=== PATIENT | female | born 1990 | race Two or more races ===

== ENCOUNTER 2022-03-27 12:51 | Inpatient (IN) | payer BC ==
[2022-03-27 14:19] VITALS: BMI 24.3
[2022-03-27] MEDS ORDERED: DICYCLOMINE HCL 10 MG CAPSULE PO PRN (16:50)
[2022-03-27] MEDS ORDERED: MAGNESIUM CITRATE 300 ML BOTTLE PO PRN (16:50)
[2022-03-27] MEDS ORDERED: LOPERAMIDE HCL 2 MG CAPSULE PO PRN (16:50)
[2022-03-27] MEDS ORDERED: BENZOCAINE/MENTHOL (CHLORASEPTIC ) LOZENGE MM PRN (16:50)
[2022-03-27] MEDS ORDERED: NICOTINE POLACRILEX 2 MG GUM BUC PRN (16:50)
[2022-03-27] MEDS ORDERED: MAGNESIUM HYDROX 2400MG/30ML ORAL SUSPENSION 30 ML CUP PO PRN (16:50)
[2022-03-27] MEDS ORDERED: ONDANSETRON *ODT* 4 MG TABLET SL PRN (16:50)
[2022-03-27] MEDS ORDERED: BISMUTH SUBSALICYLATE 524 MG/30 ML PO PRN (16:50)
[2022-03-27] MEDS ORDERED: NALOXONE HCL (KLOXXADO) 8 MG SPRAY NS PRN (16:50)
[2022-03-27] MEDS ORDERED: chlordiazePOXIDE HCL 25 MG CAPSULE PO PRN (16:50)
[2022-03-27] MEDS ORDERED: ACETAMINOPHEN 325 MG TABLET (FP) PO PRN ×2 (16:50)
[2022-03-27] MEDS ORDERED: OMEPRAZOLE MAGNESIUM PO PRN (17:23)
[2022-03-27] MEDS: chlordiazePOXIDE HCL 25 MG CAPSULE PO SCH ×2 (18:27→22:28)
[2022-03-27] MEDS: METHOCARBAMOL 500 MG TABLET PO PRN (18:30)
[2022-03-27] MEDS: hydrOXYzine PAMOATE 25 MG CAPSULE (FP) PO SCH ×2 (18:30→22:28)
[2022-03-27] MEDS: MELATONIN 5 MG TABLETS PO SCH (22:28)
[2022-03-27] MEDS: hydrALAZINE HCL 50 MG TABLET (FP) PO SCH (22:28)
[2022-03-27] MEDS ORDERED: QUEtiapine FUMARATE 200 MG TABLET PO ONE (22:30)
[2022-03-27] MEDS: THIAMINE HCL 100 MG TABLET (FP) PO SCH (22:32)
[2022-03-28] MEDS: chlordiazePOXIDE HCL 25 MG CAPSULE PO SCH ×4 (06:14→23:33)
[2022-03-28] MEDS: hydrALAZINE HCL 50 MG TABLET (FP) PO SCH ×3 (06:14→23:33)
[2022-03-28] MEDS: hydrOXYzine PAMOATE 25 MG CAPSULE (FP) PO SCH ×5 (06:14→23:33)
[2022-03-28 11:26] LABS: HEMATOCRIT 39.3 % (32.4-45.2); HEMOGLOBIN 12.2 GM/dL (10.7-15.3); MCH 24.6 pg (25.7-33.7); MCHC 31.1 g/dl (32.0-36.0); MEAN PLT VOLUME 8.6 fl (7.5-11.1); PLATELET COUNT 362 10^3/uL (134-434); RBC 4.97 M/mm3 (3.60-5.2); RDW 17.5 % (11.6-15.6); WHITE BLOOD COUNT 6.6 K/mm3 (4.0-10.0)
[2022-03-28] MEDS: amLODIPine BESYLATE 2.5 MG TABLET (FP) PO SCH (11:52)
[2022-03-28] MEDS: PRENATAL VITAMINS W/ FOLIC ACID TABLET (FP) PO SCH (11:52)
[2022-03-28 12:38] LABS: BLOOD UREA NITROGEN 15.9 mg/dL (7-18); CALCIUM 11.1 mg/dL (8.5-10.1)
[2022-03-28 12:39] LABS: ALBUMIN 3.6 g/dl (3.4-5.0)
[2022-03-28 12:42] LABS: BILIRUBIN,TOTAL 0.3 mg/dL (0.2-1); TOT PROT 7.5 g/dl (6.4-8.2)
[2022-03-28 12:55] LABS: HIV INTERPRETATION NEGATIVE (NEGATIVE)
[2022-03-28] MEDS: METHOCARBAMOL 500 MG TABLET PO PRN (18:01)
[2022-03-28] MEDS: THIAMINE HCL 100 MG TABLET (FP) PO SCH (23:33)
[2022-03-28] MEDS: MELATONIN 5 MG TABLETS PO SCH (23:33)
[2022-03-29] MEDS: chlordiazePOXIDE HCL 25 MG CAPSULE PO SCH ×4 (05:55→22:41)
[2022-03-29] MEDS: hydrALAZINE HCL 50 MG TABLET (FP) PO SCH ×3 (06:52→22:41)
[2022-03-29] MEDS: hydrOXYzine PAMOATE 25 MG CAPSULE (FP) PO SCH ×5 (07:11→22:41)
[2022-03-29] MEDS: amLODIPine BESYLATE 2.5 MG TABLET (FP) PO SCH (10:37)
[2022-03-29] MEDS: PRENATAL VITAMINS W/ FOLIC ACID TABLET (FP) PO SCH (10:38)
[2022-03-29] MEDS: MAG HYDROX/AL HYDROX/SIMETH 30 ML UNIT-DOSE CUP PO PRN (11:01)
[2022-03-29] MEDS: FAMOTIDINE 20 MG TABLET PO SCH ×2 (13:44→22:41)
[2022-03-29] MEDS: METHOCARBAMOL 500 MG TABLET PO PRN (18:22)
[2022-03-29] MEDS: THIAMINE HCL 100 MG TABLET (FP) PO SCH (22:41)
[2022-03-29] MEDS: SENNOSIDES 8.6MG TABLET (FP) PO SCH (22:41)
[2022-03-29] MEDS: MELATONIN 5 MG TABLETS PO SCH (22:45)
[2022-03-30] MEDS ORDERED: chlordiazePOXIDE HCL 10 MG CAPSULE PO PRN
[2022-03-30] MEDS: chlordiazePOXIDE HCL 10 MG CAPSULE PO SCH ×4 (06:11→22:26)
[2022-03-30] MEDS: hydrALAZINE HCL 50 MG TABLET (FP) PO SCH ×3 (06:12→23:31)
[2022-03-30] MEDS: hydrOXYzine PAMOATE 25 MG CAPSULE (FP) PO SCH ×5 (06:12→22:27)
[2022-03-30] MEDS: amLODIPine BESYLATE 2.5 MG TABLET (FP) PO SCH (11:30)
[2022-03-30] MEDS: PRENATAL VITAMINS W/ FOLIC ACID TABLET (FP) PO SCH (11:30)
[2022-03-30] MEDS: FAMOTIDINE 20 MG TABLET PO SCH ×2 (11:30→22:25)
[2022-03-30] MEDS: IBUPROFEN 600 MG TABLET (FP) PO PRN (16:23)
[2022-03-30] MEDS: METHOCARBAMOL 500 MG TABLET PO PRN (17:40)
[2022-03-30] MEDS: NICOTINE 10 MG CARTRIDGE (INHALER) IH PRN (19:29)
[2022-03-30] MEDS: SENNOSIDES 8.6MG TABLET (FP) PO SCH (22:25)
[2022-03-30] MEDS: MELATONIN 5 MG TABLETS PO SCH (22:25)
[2022-03-30] MEDS: THIAMINE HCL 100 MG TABLET (FP) PO SCH (22:25)
[2022-03-30] MEDS ORDERED: QUEtiapine FUMARATE 200 MG TABLET PO ONE (22:38)
[2022-03-31] MEDS: IBUPROFEN 600 MG TABLET (FP) PO PRN (05:24)
[2022-03-31] MEDS: hydrALAZINE HCL 50 MG TABLET (FP) PO SCH ×3 (05:24→22:18)
[2022-03-31] MEDS: hydrOXYzine PAMOATE 25 MG CAPSULE (FP) PO SCH ×5 (05:24→22:18)
[2022-03-31] MEDS: chlordiazePOXIDE HCL 10 MG CAPSULE PO SCH ×2 (05:24→18:04)
[2022-03-31] MEDS: NICOTINE 10 MG CARTRIDGE (INHALER) IH PRN ×2 (10:10→22:21)
[2022-03-31] MEDS: FAMOTIDINE 20 MG TABLET PO SCH ×2 (10:11→22:18)
[2022-03-31] MEDS: PRENATAL VITAMINS W/ FOLIC ACID TABLET (FP) PO SCH (10:11)
[2022-03-31] MEDS: METHOCARBAMOL 500 MG TABLET PO PRN (10:11)
[2022-03-31] MEDS: IBUPROFEN 400 MG TABLET (FP) PO PRN (10:11)
[2022-03-31] MEDS: amLODIPine BESYLATE 2.5 MG TABLET (FP) PO SCH (10:11)
[2022-03-31] MEDS: MAG HYDROX/AL HYDROX/SIMETH 30 ML UNIT-DOSE CUP PO PRN ×2 (11:47→18:02)
[2022-03-31] MEDS: QUEtiapine FUMARATE 200 MG TABLET PO SCH (22:18)
[2022-03-31] MEDS: SENNOSIDES 8.6MG TABLET (FP) PO SCH (22:18)
[2022-03-31] MEDS: THIAMINE HCL 100 MG TABLET (FP) PO SCH (22:19)
[2022-03-31] MEDS: MELATONIN 5 MG TABLETS PO SCH (22:22)
[2022-04-01] MEDS ORDERED: chlordiazePOXIDE HCL 10 MG CAPSULE PO ONE (05:00)
[2022-04-01] MEDS: hydrOXYzine PAMOATE 25 MG CAPSULE (FP) PO SCH ×5 (05:34→22:05)
[2022-04-01] MEDS: hydrALAZINE HCL 50 MG TABLET (FP) PO SCH ×3 (05:34→22:06)
[2022-04-01] MEDS: IBUPROFEN 400 MG TABLET (FP) PO PRN (05:38)
[2022-04-01] MEDS ORDERED: FAMOTIDINE 20 MG TABLET PO SCH (10:00)
[2022-04-01] MEDS: PRENATAL VITAMINS W/ FOLIC ACID TABLET (FP) PO SCH (10:50)
[2022-04-01] MEDS: FAMOTIDINE 20 MG TABLET PO SCH ×2 (10:52→22:06)
[2022-04-01] MEDS: MAG HYDROX/AL HYDROX/SIMETH 30 ML UNIT-DOSE CUP PO PRN ×2 (10:53→17:49)
[2022-04-01] MEDS: NICOTINE 10 MG CARTRIDGE (INHALER) IH PRN (10:57)
[2022-04-01] MEDS: amLODIPine BESYLATE 2.5 MG TABLET (FP) PO SCH (11:07)
[2022-04-01 13:37] VITALS: RESP 18
[2022-04-01] MEDS: THIAMINE HCL 100 MG TABLET (FP) PO SCH (22:05)
[2022-04-01] MEDS: SENNOSIDES 8.6MG TABLET (FP) PO SCH (22:06)
[2022-04-01] MEDS: QUEtiapine FUMARATE 200 MG TABLET PO SCH (22:06)
[2022-04-01] MEDS: MELATONIN 5 MG TABLETS PO SCH (23:15)
[2022-04-02] MEDS: hydrOXYzine PAMOATE 25 MG CAPSULE (FP) PO SCH (05:50)
[2022-04-02 06:23] VITALS: BP 105/73; PULSE 75; TEMP 97.4
[2022-04-02] MEDS: hydrALAZINE HCL 50 MG TABLET (FP) PO SCH (06:50)
== END 2022-04-02 09:03 | disposition home or self-care (01) | DRG 773 ==
LOC: YASAS 12:51 → Y6N 17:32
PROVIDERS: ADMIT Allergy & Immunology; ATTEND Surgery
PROC: HZ2ZZZZ Detoxification Services for Substance Abuse Treatment (ICD-10-PCS; principal; 2022-03-27)
DX: F10.230 Alcohol dependence with withdrawal, uncomplicated (principal); F13.230 Sedative, hypnotic or anxiolytic dependence with withdrawal, uncomplicated; F11.20 Opioid dependence, uncomplicated; F14.20 Cocaine dependence, uncomplicated; F12.20 Cannabis dependence, uncomplicated; F17.210 Nicotine dependence, cigarettes, uncomplicated; F19.282 Other psychoactive substance dependence with psychoactive substance-induced sleep disorder; F31.9 Bipolar disorder, unspecified; F25.9 Schizoaffective disorder, unspecified; F43.10 Post-traumatic stress disorder, unspecified; I10 Essential (primary) hypertension; J45.20 Mild intermittent asthma, uncomplicated; K21.9 Gastro-esophageal reflux disease without esophagitis; K59.00 Constipation, unspecified; Z88.0 Allergy status to penicillin
CPT/HCPCS: 36415; 80053; 81025; 85027; 86780; 86803; 87389; 87811; C9803-CS; U0003; U0005

== ENCOUNTER 2022-05-16 08:15 | Inpatient (IN) | payer BC ==
[2022-05-16 09:12] VITALS: BMI 22.8
[2022-05-16] MEDS ORDERED: MAGNESIUM HYDROX 2400MG/30ML ORAL SUSPENSION 30 ML CUP PO PRN (09:23)
[2022-05-16] MEDS ORDERED: diazePAM 5 MG TABLET PO PRN (09:23)
[2022-05-16] MEDS ORDERED: ACETAMINOPHEN 325 MG TABLET (FP) PO PRN ×2 (09:23)
[2022-05-16] MEDS ORDERED: BISMUTH SUBSALICYLATE 524 MG/30 ML PO PRN (09:23)
[2022-05-16] MEDS ORDERED: LOPERAMIDE HCL 2 MG CAPSULE PO PRN (09:23)
[2022-05-16] MEDS ORDERED: IBUPROFEN 600 MG TABLET (FP) PO PRN (09:23)
[2022-05-16] MEDS ORDERED: ONDANSETRON *ODT* 4 MG TABLET SL PRN (09:23)
[2022-05-16] MEDS ORDERED: IBUPROFEN 400 MG TABLET (FP) PO PRN (09:23)
[2022-05-16] MEDS ORDERED: NICOTINE 10 MG CARTRIDGE (INHALER) IH PRN (09:23)
[2022-05-16] MEDS ORDERED: BENZOCAINE/MENTHOL (CHLORASEPTIC ) LOZENGE MM PRN (09:23)
[2022-05-16] MEDS ORDERED: MAGNESIUM CITRATE 300 ML BOTTLE PO PRN (09:23)
[2022-05-16] MEDS ORDERED: DICYCLOMINE HCL 10 MG CAPSULE PO PRN (09:23)
[2022-05-16] MEDS: PRENATAL VITAMINS W/ FOLIC ACID TABLET (FP) PO SCH (10:47)
[2022-05-16] MEDS: FAMOTIDINE 20 MG TABLET PO SCH (10:47)
[2022-05-16] MEDS: diazePAM 5 MG TABLET PO SCH ×3 (10:48→22:19)
[2022-05-16] MEDS: amLODIPine BESYLATE 2.5 MG TABLET (FP) PO SCH (11:04)
[2022-05-16 16:25] LABS: HEMATOCRIT 34.6 % (32.4-45.2); HEMOGLOBIN 11.2 GM/dL (10.7-15.3); MCH 25.6 pg (25.7-33.7); MCHC 32.3 g/dl (32.0-36.0); MEAN CELL VOLUME 79.3 fl (80-96); MEAN PLT VOLUME 8.6 fl (7.5-11.1); PLATELET COUNT 393 10^3/uL (134-434); RBC 4.37 M/mm3 (3.60-5.2); RDW 16.4 % (11.6-15.6); WHITE BLOOD COUNT 6.1 K/mm3 (4.0-10.0)
[2022-05-16 16:35] LABS: CALCIUM 10.8 mg/dL (8.5-10.1)
[2022-05-16 16:36] LABS: ALBUMIN 3.2 g/dl (3.4-5.0); BLOOD UREA NITROGEN 9.8 mg/dL (7-18)
[2022-05-16 16:37] LABS: BILIRUBIN,TOTAL 0.2 mg/dL (0.2-1); CREATININE 0.8 mg/dL (0.55-1.3); TOT PROT 8.1 g/dl (6.4-8.2)
[2022-05-16] MEDS ORDERED: MELATONIN 5 MG TABLETS PO SCH (22:00)
[2022-05-16] MEDS: SENNOSIDES 8.6MG TABLET (FP) PO SCH (22:19)
[2022-05-16] MEDS: THIAMINE HCL 100 MG TABLET (FP) PO SCH (22:19)
[2022-05-16] MEDS: QUEtiapine FUMARATE 200 MG TABLET PO SCH (22:19)
[2022-05-17] MEDS: diazePAM 5 MG TABLET PO SCH ×4 (05:29→22:26)
[2022-05-17] MEDS: FAMOTIDINE 20 MG TABLET PO SCH (10:39)
[2022-05-17] MEDS: PRENATAL VITAMINS W/ FOLIC ACID TABLET (FP) PO SCH (10:39)
[2022-05-17] MEDS: amLODIPine BESYLATE 2.5 MG TABLET (FP) PO SCH (10:41)
[2022-05-17] MEDS ORDERED: FLU VACC QS2022-23(6MOS UP)/PF 60 MCG/0.5 ML SYRINGE IM ONE (12:00)
[2022-05-17] MEDS: METHOCARBAMOL 500 MG TABLET PO PRN (17:47)
[2022-05-17] MEDS: hydrOXYzine PAMOATE 25 MG CAPSULE (FP) PO PRN (17:47)
[2022-05-17] MEDS: THIAMINE HCL 100 MG TABLET (FP) PO SCH (22:26)
[2022-05-17] MEDS: QUEtiapine FUMARATE 200 MG TABLET PO SCH (22:26)
[2022-05-17] MEDS: SENNOSIDES 8.6MG TABLET (FP) PO SCH (22:26)
[2022-05-18] MEDS: diazePAM 5 MG TABLET PO SCH ×3 (05:53→22:17)
[2022-05-18] MEDS: FAMOTIDINE 20 MG TABLET PO SCH (10:10)
[2022-05-18] MEDS: PRENATAL VITAMINS W/ FOLIC ACID TABLET (FP) PO SCH (10:10)
[2022-05-18] MEDS: amLODIPine BESYLATE 2.5 MG TABLET (FP) PO SCH (10:11)
[2022-05-18] MEDS ORDERED: FLU VACC QS2022-23(6MOS UP)/PF 60 MCG/0.5 ML SYRINGE IM ONE (12:00)
[2022-05-18] MEDS: hydrOXYzine PAMOATE 25 MG CAPSULE (FP) PO PRN ×3 (12:55→22:16)
[2022-05-18 15:28] LABS: URINE APPEARANCE CLOUDY; URINE BILIRUBIN NEGATIVE (NEGATIVE); URINE COLOR YELLOW; URINE GLUCOSE (UA) NEGATIVE (NEGATIVE); URINE KETONE TRACE (NEGATIVE); URINE LEUK ESTERASE NEGATIVE (NEGATIVE); URINE NITRITE NEGATIVE (NEGATIVE); URINE PROTEIN NEGATIVE (NEGATIVE); URINE UROBILINOGEN 0.2 mg/dL (0.2-1.0)
[2022-05-18] MEDS: QUEtiapine FUMARATE 200 MG TABLET PO SCH (22:16)
[2022-05-18] MEDS: SENNOSIDES 8.6MG TABLET (FP) PO SCH (22:16)
[2022-05-18] MEDS: THIAMINE HCL 100 MG TABLET (FP) PO SCH (22:17)
[2022-05-19] MEDS: diazePAM 5 MG TABLET PO SCH ×2 (05:44→18:04)
[2022-05-19] MEDS: PRENATAL VITAMINS W/ FOLIC ACID TABLET (FP) PO SCH (10:25)
[2022-05-19] MEDS: amLODIPine BESYLATE 2.5 MG TABLET (FP) PO SCH (10:26)
[2022-05-19] MEDS: FAMOTIDINE 20 MG TABLET PO SCH (10:26)
[2022-05-19] MEDS: hydrOXYzine PAMOATE 25 MG CAPSULE (FP) PO PRN ×2 (18:04→22:25)
[2022-05-19] MEDS: METHOCARBAMOL 500 MG TABLET PO PRN (18:04)
[2022-05-19] MEDS: SENNOSIDES 8.6MG TABLET (FP) PO SCH (22:25)
[2022-05-19] MEDS: QUEtiapine FUMARATE 200 MG TABLET PO SCH (22:25)
[2022-05-19] MEDS: THIAMINE HCL 100 MG TABLET (FP) PO SCH (22:26)
[2022-05-20] MEDS ORDERED: diazePAM 5 MG TABLET PO ONE (06:00)
[2022-05-20 09:37] VITALS: RESP 18
[2022-05-20] MEDS: hydrOXYzine PAMOATE 25 MG CAPSULE (FP) PO PRN ×2 (10:20→17:29)
[2022-05-20] MEDS: FAMOTIDINE 20 MG TABLET PO SCH (10:20)
[2022-05-20] MEDS: PRENATAL VITAMINS W/ FOLIC ACID TABLET (FP) PO SCH (10:21)
[2022-05-20] MEDS: METHOCARBAMOL 500 MG TABLET PO PRN (10:21)
[2022-05-20] MEDS: MAG HYDROX/AL HYDROX/SIMETH 30 ML UNIT-DOSE CUP PO PRN ×2 (10:22→22:07)
[2022-05-20] MEDS: amLODIPine BESYLATE 2.5 MG TABLET (FP) PO SCH (10:35)
[2022-05-20] MEDS: THIAMINE HCL 100 MG TABLET (FP) PO SCH (22:06)
[2022-05-20] MEDS: SENNOSIDES 8.6MG TABLET (FP) PO SCH (22:06)
[2022-05-20] MEDS: QUEtiapine FUMARATE 200 MG TABLET PO SCH (22:06)
[2022-05-21 08:12] VITALS: TEMP 97.8
[2022-05-21 09:29] VITALS: BP 119/72; PULSE 88
[2022-05-21] MEDS: FAMOTIDINE 20 MG TABLET PO SCH (09:40)
[2022-05-21] MEDS: hydrOXYzine PAMOATE 25 MG CAPSULE (FP) PO PRN (09:40)
[2022-05-21] MEDS: PRENATAL VITAMINS W/ FOLIC ACID TABLET (FP) PO SCH (10:59)
[2022-05-21] MEDS: amLODIPine BESYLATE 2.5 MG TABLET (FP) PO SCH (10:59)
[2022-05-21] MEDS: MAG HYDROX/AL HYDROX/SIMETH 30 ML UNIT-DOSE CUP PO PRN (11:02)
== END 2022-05-21 11:33 | disposition home or self-care (01) | DRG 774 ==
LOC: YASAS 08:15 → Y6N 10:04
PROVIDERS: ADMIT Allergy & Immunology; ATTEND Surgery
PROC: HZ2ZZZZ Detoxification Services for Substance Abuse Treatment (ICD-10-PCS; principal; 2022-05-16)
DX: F10.230 Alcohol dependence with withdrawal, uncomplicated (principal); F14.20 Cocaine dependence, uncomplicated; F12.20 Cannabis dependence, uncomplicated; F17.210 Nicotine dependence, cigarettes, uncomplicated; F31.9 Bipolar disorder, unspecified; F19.282 Other psychoactive substance dependence with psychoactive substance-induced sleep disorder; F39 Unspecified mood [affective] disorder; I10 Essential (primary) hypertension; K21.9 Gastro-esophageal reflux disease without esophagitis; K59.89 Other specified functional intestinal disorders; Z88.0 Allergy status to penicillin
CPT/HCPCS: 36415; 80053; 81003; 81025; 85027; 86780; C9803-CS; G0008; Q2036; U0003; U0005

== ENCOUNTER 2022-09-01 10:18 | Inpatient (IN) | payer BC ==
[2022-09-01 10:37] VITALS: BMI 20.9
[2022-09-01] MEDS ORDERED: DICYCLOMINE HCL 10 MG CAPSULE PO PRN (11:13)
[2022-09-01] MEDS ORDERED: NICOTINE POLACRILEX 2 MG GUM BUC PRN (11:13)
[2022-09-01] MEDS ORDERED: POLYETHYLENE GLYCOL (HEALTHYLAX) 3350 17 GM PACKET PO PRN (11:13)
[2022-09-01] MEDS ORDERED: MAG HYDROX/AL HYDROX/SIMETH 30 ML UNIT-DOSE CUP PO PRN (11:13)
[2022-09-01] MEDS ORDERED: IBUPROFEN 400 MG TABLET (FP) PO PRN (11:13)
[2022-09-01] MEDS ORDERED: ACETAMINOPHEN 325 MG TABLET (FP) PO PRN ×2 (11:13)
[2022-09-01] MEDS ORDERED: BENZOCAINE/MENTHOL (CHLORASEPTIC ) LOZENGE MM PRN (11:13)
[2022-09-01] MEDS ORDERED: LOPERAMIDE HCL 2 MG CAPSULE PO PRN (11:13)
[2022-09-01] MEDS ORDERED: MAGNESIUM HYDROX 2400MG/30ML ORAL SUSPENSION 30 ML CUP PO PRN (11:13)
[2022-09-01] MEDS ORDERED: IBUPROFEN 600 MG TABLET (FP) PO PRN (11:13)
[2022-09-01] MEDS ORDERED: ONDANSETRON *ODT* 4 MG TABLET SL PRN (11:13)
[2022-09-01] MEDS ORDERED: NALOXONE HCL (KLOXXADO) 8 MG SPRAY NS PRN (11:13)
[2022-09-01] MEDS ORDERED: BISMUTH SUBSALICYLATE 524 MG/30 ML PO PRN (11:13)
[2022-09-01] MEDS ORDERED: SENNOSIDES 8.6MG TABLET (FP) PO PRN (11:18)
[2022-09-01] MEDS: DOCUSATE SODIUM 100 MG CAPSULE (FP) PO SCH ×2 (13:13→23:25)
[2022-09-01] MEDS: hydrOXYzine PAMOATE 25 MG CAPSULE (FP) PO PRN (13:14)
[2022-09-01] MEDS: METHOCARBAMOL 500 MG TABLET PO PRN (13:14)
[2022-09-01 14:27] LABS: HEMATOCRIT 34.4 % (32.4-45.2); HEMOGLOBIN 11.2 GM/dL (10.7-15.3); MCH 25.7 pg (25.7-33.7); MCHC 32.7 g/dl (32.0-36.0); MEAN CELL VOLUME 78.5 fl (80-96); MEAN PLT VOLUME 7.6 fl (7.5-11.1); PLATELET COUNT 412 10^3/uL (134-434); RBC 4.38 M/mm3 (3.60-5.2); RDW 14.9 % (11.6-15.6)
[2022-09-01 15:15] LABS: CALCIUM 10.6 mg/dL (8.5-10.1)
[2022-09-01 15:16] LABS: ALBUMIN 3.4 g/dl (3.4-5.0); BLOOD UREA NITROGEN 10.8 mg/dL (7-18)
[2022-09-01 15:19] LABS: CREATININE 0.8 mg/dL (0.55-1.3)
[2022-09-01 15:21] LABS: BILIRUBIN,TOTAL 0.2 mg/dL (0.2-1); TOT PROT 7.7 g/dl (6.4-8.2)
[2022-09-01] MEDS: MELATONIN 5 MG TABLETS PO SCH (23:25)
[2022-09-01] MEDS: THIAMINE HCL 100 MG TABLET (FP) PO SCH (23:26)
[2022-09-02] MEDS: DOCUSATE SODIUM 100 MG CAPSULE (FP) PO SCH ×3 (06:42→22:51)
[2022-09-02] MEDS: PANTOPRAZOLE 20 MG TABLET PO SCH (10:43)
[2022-09-02] MEDS: METHOCARBAMOL 500 MG TABLET PO PRN ×2 (10:43→22:52)
[2022-09-02] MEDS: amLODIPine BESYLATE 2.5 MG TABLET (FP) PO SCH (10:43)
[2022-09-02] MEDS: PRENATAL VITAMINS W/ FOLIC ACID TABLET (FP) PO SCH (10:43)
[2022-09-02] MEDS: hydrOXYzine PAMOATE 25 MG CAPSULE (FP) PO PRN (10:44)
[2022-09-02] MEDS ORDERED: QUEtiapine FUMARATE 200 MG TABLET PO SCH (22:00)
[2022-09-02] MEDS: MELATONIN 5 MG TABLETS PO SCH (22:51)
[2022-09-02] MEDS: THIAMINE HCL 100 MG TABLET (FP) PO SCH (22:52)
[2022-09-03] MEDS: DOCUSATE SODIUM 100 MG CAPSULE (FP) PO SCH (06:08)
[2022-09-03 10:06] VITALS: BP 105/67; PULSE 81; RESP 18; TEMP 97.7
[2022-09-03] MEDS: amLODIPine BESYLATE 2.5 MG TABLET (FP) PO SCH (10:35)
[2022-09-03] MEDS: METHOCARBAMOL 500 MG TABLET PO PRN (10:35)
[2022-09-03] MEDS: PRENATAL VITAMINS W/ FOLIC ACID TABLET (FP) PO SCH (10:35)
[2022-09-03] MEDS: PANTOPRAZOLE 20 MG TABLET PO SCH (10:35)
[2022-09-03] MEDS ORDERED: LORazepam 1 MG TABLET PO ONE (12:33)
== END 2022-09-03 14:01 | disposition home or self-care (01) | DRG 775 ==
LOC: YASAS 10:18 → Y6N 12:50 → UNDOADMIN 12:50 → UNDODISIN 09-03 14:01
PROVIDERS: ADMIT Allergy & Immunology; ATTEND Surgery
PROC: HZ2ZZZZ Detoxification Services for Substance Abuse Treatment (ICD-10-PCS; principal; 2022-09-01)
DX: F10.230 Alcohol dependence with withdrawal, uncomplicated (principal); F17.210 Nicotine dependence, cigarettes, uncomplicated; F25.9 Schizoaffective disorder, unspecified; F41.9 Anxiety disorder, unspecified; I10 Essential (primary) hypertension; K21.9 Gastro-esophageal reflux disease without esophagitis; G47.00 Insomnia, unspecified
CPT/HCPCS: 36415; 80053; 81025; 85027; 86780; 87811; 93005; 93010; C9803-CS; U0003; U0005

== ENCOUNTER 2022-11-16 12:27 | Inpatient (IN) | payer BC ==
[2022-11-16] MEDS ORDERED: chlordiazePOXIDE HCL 25 MG CAPSULE PO PRN (14:49)
[2022-11-16] MEDS ORDERED: NALOXONE HCL (KLOXXADO) 8 MG SPRAY NS PRN (14:49)
[2022-11-16] MEDS ORDERED: ONDANSETRON *ODT* 4 MG TABLET SL PRN (14:49)
[2022-11-16] MEDS ORDERED: IBUPROFEN 400 MG TABLET (FP) PO PRN (14:49)
[2022-11-16] MEDS ORDERED: IBUPROFEN 600 MG TABLET (FP) PO PRN (14:49)
[2022-11-16] MEDS ORDERED: METHOCARBAMOL 500 MG TABLET PO PRN (14:49)
[2022-11-16] MEDS ORDERED: BISMUTH SUBSALICYLATE 262 MG/15 ML BTL PO PRN (14:49)
[2022-11-16] MEDS ORDERED: NALOXONE HCL 0.4 MG/ML VIAL IM PRN (14:49)
[2022-11-16] MEDS ORDERED: guaiFENesin 600 MG TABLET.ER (FP) PO PRN (14:49)
[2022-11-16] MEDS ORDERED: ACETAMINOPHEN 325 MG TABLET (FP) PO PRN (14:49)
[2022-11-16] MEDS ORDERED: LOPERAMIDE HCL 2 MG CAPSULE PO PRN (14:49)
[2022-11-16] MEDS ORDERED: MAGNESIUM HYDROX 2400MG/30ML ORAL SUSPENSION 30 ML CUP PO PRN (14:49)
[2022-11-16] MEDS ORDERED: MAG HYDROX/AL HYDROX/SIMETH 30 ML UNIT-DOSE CUP PO PRN (14:49)
[2022-11-16] MEDS ORDERED: BENZOCAINE/MENTHOL (CHLORASEPTIC ) LOZENGE MM PRN (14:49)
[2022-11-16] MEDS ORDERED: POLYETHYLENE GLYCOL (HEALTHYLAX) 3350 17 GM PACKET PO PRN (14:49)
[2022-11-16] MEDS ORDERED: NICOTINE 10 MG CARTRIDGE (INHALER) IH PRN (14:49)
[2022-11-16] MEDS ORDERED: DICYCLOMINE HCL 10 MG CAPSULE PO PRN (14:49)
[2022-11-16] MEDS ORDERED: BENZONATATE 200 MG CAPSULE PO PRN (14:49)
[2022-11-16] MEDS ORDERED: METHOCARBAMOL 500 MG TABLET ONE (15:33)
[2022-11-16] MEDS ORDERED: hydrOXYzine PAMOATE 25 MG CAPSULE (FP) PO ONE (15:33)
[2022-11-16] MEDS: hydrOXYzine PAMOATE 25 MG CAPSULE (FP) PO PRN (15:40)
[2022-11-16] MEDS: NICOTINE 14 MG/24 HOURS TOPICAL PATCH TD SCH (15:56)
[2022-11-16] MEDS: PRENATAL VITAMINS W/ FOLIC ACID TABLET (FP) PO SCH (15:56)
[2022-11-16] MEDS: chlordiazePOXIDE HCL 25 MG CAPSULE PO SCH ×2 (17:27→22:38)
[2022-11-16 17:54] LABS: HEMATOCRIT 33.5 % (32.4-45.2); HEMOGLOBIN 10.8 GM/dL (10.7-15.3); MCH 25.5 pg (25.7-33.7); MCHC 32.3 g/dl (32.0-36.0); MEAN CELL VOLUME 78.8 fl (80-96); MEAN PLT VOLUME 7.6 fl (7.5-11.1); PLATELET COUNT 346 10^3/uL (134-434); RBC 4.25 M/mm3 (3.60-5.2); RDW 17.6 % (11.6-15.6); WHITE BLOOD COUNT 5.9 K/mm3 (4.0-10.0)
[2022-11-16 18:05] LABS: ALBUMIN 3.4 g/dl (3.4-5.0); CALCIUM 10.4 mg/dL (8.5-10.1)
[2022-11-16 18:07] LABS: BLOOD UREA NITROGEN 13.2 mg/dL (7-18)
[2022-11-16 18:08] LABS: CREATININE 0.8 mg/dL (0.55-1.3)
[2022-11-16 18:09] LABS: BILIRUBIN,TOTAL 0.1 mg/dL (0.2-1); TOT PROT 7.4 g/dl (6.4-8.2)
[2022-11-16] MEDS ORDERED: MELATONIN 5 MG TABLETS PO SCH (22:00)
[2022-11-16] MEDS: hydrALAZINE HCL 50 MG TABLET (FP) PO SCH (22:38)
[2022-11-16] MEDS: THIAMINE HCL 100 MG TABLET (FP) PO SCH (22:38)
[2022-11-16] MEDS: DOCUSATE SODIUM 100 MG CAPSULE (FP) PO SCH (22:40)
[2022-11-17 01:02] LABS: HIV INTERPRETATION PRESUMPTIVE POSITIVE (NEGATIVE)
[2022-11-17] MEDS: chlordiazePOXIDE HCL 25 MG CAPSULE PO SCH ×4 (05:30→22:46)
[2022-11-17] MEDS: hydrALAZINE HCL 50 MG TABLET (FP) PO SCH ×3 (05:31→22:45)
[2022-11-17] MEDS: DOCUSATE SODIUM 100 MG CAPSULE (FP) PO SCH ×3 (05:31→22:44)
[2022-11-17] MEDS ORDERED: PATIENT'S OWN MEDICATION (NON-FORMULARY) (Linaclotide [Linzess] 145 MCG Capsule) PO SCH (10:00)
[2022-11-17] MEDS ORDERED: LYBALVI PO SCH (10:00)
[2022-11-17] MEDS ORDERED: OLANZapine 5 MG TABLET PO SCH (10:00)
[2022-11-17] MEDS: FAMOTIDINE 20 MG TABLET PO SCH (10:25)
[2022-11-17] MEDS: PRENATAL VITAMINS W/ FOLIC ACID TABLET (FP) PO SCH (10:26)
[2022-11-17] MEDS: amLODIPine BESYLATE 5 MG TABLET (FP) PO SCH (10:26)
[2022-11-17] MEDS: NICOTINE 14 MG/24 HOURS TOPICAL PATCH TD SCH (10:27)
[2022-11-17] MEDS ORDERED: ALBUTEROL SO4 HFA INHALER IH PRN (11:06)
[2022-11-17] MEDS: PANTOPRAZOLE 40 MG TABLET PO SCH (13:23)
[2022-11-17] MEDS: hydrOXYzine PAMOATE 25 MG CAPSULE (FP) PO PRN (17:52)
[2022-11-17] MEDS ORDERED: QUEtiapine FUMARATE 200 MG TABLET PO SCH (22:00)
[2022-11-17] MEDS: THIAMINE HCL 100 MG TABLET (FP) PO SCH (22:43)
[2022-11-17] MEDS: QUEtiapine FUMARATE 100 MG TABLET (FP) PO SCH (22:44)
[2022-11-18] MEDS: chlordiazePOXIDE HCL 25 MG CAPSULE PO SCH ×4 (05:58→22:45)
[2022-11-18] MEDS: hydrALAZINE HCL 50 MG TABLET (FP) PO SCH ×3 (05:58→22:43)
[2022-11-18] MEDS: DOCUSATE SODIUM 100 MG CAPSULE (FP) PO SCH ×3 (05:58→22:43)
[2022-11-18] MEDS: PRENATAL VITAMINS W/ FOLIC ACID TABLET (FP) PO SCH (10:49)
[2022-11-18] MEDS: amLODIPine BESYLATE 5 MG TABLET (FP) PO SCH (10:49)
[2022-11-18] MEDS: PANTOPRAZOLE 40 MG TABLET PO SCH (10:49)
[2022-11-18] MEDS: NICOTINE 14 MG/24 HOURS TOPICAL PATCH TD SCH (10:49)
[2022-11-18] MEDS: FAMOTIDINE 20 MG TABLET PO SCH (10:49)
[2022-11-18] MEDS: hydrOXYzine PAMOATE 25 MG CAPSULE (FP) PO PRN (13:26)
[2022-11-18] MEDS: QUEtiapine FUMARATE 100 MG TABLET (FP) PO SCH (22:43)
[2022-11-18] MEDS: THIAMINE HCL 100 MG TABLET (FP) PO SCH (22:45)
[2022-11-19] MEDS ORDERED: chlordiazePOXIDE HCL 10 MG CAPSULE PO PRN
[2022-11-19] MEDS: hydrALAZINE HCL 50 MG TABLET (FP) PO SCH ×2 (07:23→13:07)
[2022-11-19] MEDS: chlordiazePOXIDE HCL 10 MG CAPSULE PO SCH ×2 (07:23→10:46)
[2022-11-19] MEDS: DOCUSATE SODIUM 100 MG CAPSULE (FP) PO SCH ×2 (07:24→13:07)
[2022-11-19] MEDS: NICOTINE 14 MG/24 HOURS TOPICAL PATCH TD SCH (10:46)
[2022-11-19] MEDS: PANTOPRAZOLE 40 MG TABLET PO SCH (10:46)
[2022-11-19] MEDS: amLODIPine BESYLATE 5 MG TABLET (FP) PO SCH (10:46)
[2022-11-19] MEDS: FAMOTIDINE 20 MG TABLET PO SCH (10:46)
[2022-11-19] MEDS: PRENATAL VITAMINS W/ FOLIC ACID TABLET (FP) PO SCH (10:46)
[2022-11-19] MEDS: hydrOXYzine PAMOATE 25 MG CAPSULE (FP) PO PRN (12:15)
[2022-11-19 14:04] VITALS: BP 111/73; PULSE 103; RESP 18; TEMP 96.9
[2022-11-20] MEDS ORDERED: chlordiazePOXIDE HCL 10 MG CAPSULE PO SCH (05:00)
[2022-11-21] MEDS ORDERED: chlordiazePOXIDE HCL 10 MG CAPSULE PO ONE (05:00)
== END 2022-11-19 16:39 | disposition left against medical advice (07) | DRG 770 ==
LOC: YASAS 12:27 → Y3N 15:28
PROVIDERS: ADMIT Allergy & Immunology; ATTEND Surgery
PROC: HZ2ZZZZ Detoxification Services for Substance Abuse Treatment (ICD-10-PCS; principal; 2022-11-16)
DX: F10.230 Alcohol dependence with withdrawal, uncomplicated (principal); F19.282 Other psychoactive substance dependence with psychoactive substance-induced sleep disorder; F14.20 Cocaine dependence, uncomplicated; F17.210 Nicotine dependence, cigarettes, uncomplicated; F31.9 Bipolar disorder, unspecified; F41.9 Anxiety disorder, unspecified; Z21 Asymptomatic human immunodeficiency virus [HIV] infection status; I10 Essential (primary) hypertension; J45.909 Unspecified asthma, uncomplicated; K21.9 Gastro-esophageal reflux disease without esophagitis
CPT/HCPCS: 36415; 80053; 81025; 82550; 84484; 85027; 86780; 87389; 87811; 93005; 93010; C9803-CS; U0003; U0005

== ENCOUNTER 2023-02-06 10:47 | Inpatient (IN) | payer BC ==
[2023-02-06 11:10] VITALS: RESP 18; BMI 19.6
[2023-02-06] MEDS ORDERED: ACETAMINOPHEN 325 MG TABLET (FP) PO PRN (11:31)
[2023-02-06] MEDS ORDERED: BENZOCAINE/MENTHOL (CHLORASEPTIC ) LOZENGE MM PRN (11:31)
[2023-02-06] MEDS ORDERED: IBUPROFEN 600 MG TABLET (FP) PO PRN (11:31)
[2023-02-06] MEDS ORDERED: COLLOIDAL OATMEAL 1 BAR EACH TP PRN (11:31)
[2023-02-06] MEDS ORDERED: POLYETHYLENE GLYCOL (HEALTHYLAX) 3350 17 GM PACKET PO PRN (11:31)
[2023-02-06] MEDS ORDERED: hydrOXYzine PAMOATE 25 MG CAPSULE (FP) PO PRN (11:31)
[2023-02-06] MEDS ORDERED: NICOTINE POLACRILEX 2 MG GUM BUC PRN (11:31)
[2023-02-06] MEDS ORDERED: IBUPROFEN 400 MG TABLET (FP) PO PRN (11:31)
[2023-02-06] MEDS ORDERED: MAGNESIUM HYDROX 2400MG/30ML ORAL SUSPENSION 30 ML CUP PO PRN (11:31)
[2023-02-06] MEDS ORDERED: AMMONIUM LACTATE 12% LOTION 225 GM BOTTLE TP PRN (11:31)
[2023-02-06] MEDS ORDERED: P-EPHED 60MG/TRIPROLIDI 2.5MG TABLET PO PRN (11:31)
[2023-02-06] MEDS ORDERED: guaiFENesin 600 MG TABLET.ER (FP) PO PRN (11:31)
[2023-02-06] MEDS ORDERED: MAG HYDROX/AL HYDROX/SIMETH 30 ML UNIT-DOSE CUP PO PRN (11:31)
[2023-02-06] MEDS ORDERED: BENZONATATE 200 MG CAPSULE PO PRN (11:31)
[2023-02-06] MEDS ORDERED: LOPERAMIDE HCL 2 MG CAPSULE PO PRN (11:31)
[2023-02-06 16:21] LABS: HEMATOCRIT 34.4 % (32.4-45.2); MCHC 31.8 g/dl (32.0-36.0); MEAN CELL VOLUME 84.8 fl (80-96); MEAN PLT VOLUME 8.3 fl (7.5-11.1); PLATELET COUNT 281 10^3/uL (134-434); RBC 4.06 M/mm3 (3.60-5.2); RDW 16.8 % (11.6-15.6); WHITE BLOOD COUNT 4.4 K/mm3 (4.0-10.0)
[2023-02-06 16:32] LABS: CALCIUM 10.3 mg/dL (8.5-10.1)
[2023-02-06 16:33] LABS: ALBUMIN 3.5 g/dl (3.4-5.0); BLOOD UREA NITROGEN 13.4 mg/dL (7-18)
[2023-02-06 16:36] LABS: CREATININE 0.9 mg/dL (0.55-1.3)
[2023-02-06 16:38] LABS: BILIRUBIN,TOTAL 0.6 mg/dL (0.2-1); TOT PROT 7.2 g/dl (6.4-8.2)
[2023-02-06 16:51] LABS: SYPHILIS W/ RPR CONF NON-REACTIVE (NONREACTIVE)
[2023-02-06] MEDS: QUEtiapine FUMARATE 200 MG TABLET PO SCH (21:44)
[2023-02-06] MEDS: hydrOXYzine PAMOATE 50 MG CAPSULE (FP) PO SCH (21:44)
[2023-02-06] MEDS: risperiDONE 1 MG TABLET PO SCH (21:45)
[2023-02-06] MEDS: THIAMINE HCL 100 MG TABLET (FP) PO SCH (21:46)
[2023-02-06] MEDS ORDERED: MELATONIN 5 MG TABLETS PO SCH (22:00)
[2023-02-07] MEDS: hydrOXYzine PAMOATE 50 MG CAPSULE (FP) PO SCH (06:30)
[2023-02-07] MEDS: risperiDONE 1 MG TABLET PO SCH ×3 (09:46→21:14)
[2023-02-07] MEDS: PRENATAL VITAMINS W/ FOLIC ACID TABLET (FP) PO SCH (09:46)
[2023-02-07] MEDS ORDERED: ALBUTEROL SO4 HFA INHALER IH PRN (12:42)
[2023-02-07] MEDS ORDERED: hydrOXYzine PAMOATE 50 MG CAPSULE (FP) PO PRN (12:47)
[2023-02-07] MEDS: PANTOPRAZOLE 20 MG TABLET PO SCH (13:26)
[2023-02-07] MEDS: BICTEGRAV/EMTRICIT/TENOFOV (BIKTARVY) 50-200-25 MG TABLET PO SCH (13:26)
[2023-02-07] MEDS: amLODIPine BESYLATE 5 MG TABLET (FP) PO SCH (13:27)
[2023-02-07] MEDS: QUEtiapine FUMARATE 200 MG TABLET PO SCH (21:14)
[2023-02-07] MEDS: THIAMINE HCL 100 MG TABLET (FP) PO SCH (21:14)
[2023-02-08] MEDS: PANTOPRAZOLE 20 MG TABLET PO SCH (10:14)
[2023-02-08] MEDS: amLODIPine BESYLATE 5 MG TABLET (FP) PO SCH (10:14)
[2023-02-08] MEDS: PRENATAL VITAMINS W/ FOLIC ACID TABLET (FP) PO SCH (10:14)
[2023-02-08] MEDS: risperiDONE 1 MG TABLET PO SCH (10:14)
[2023-02-08] MEDS: BICTEGRAV/EMTRICIT/TENOFOV (BIKTARVY) 50-200-25 MG TABLET PO SCH (10:15)
[2023-02-08 17:07] VITALS: TEMP 97.8
[2023-02-08 17:34] VITALS: BP 105/68; PULSE 97
== END 2023-02-08 16:47 | disposition left against medical advice (07) | DRG 770 ==
LOC: YASAS 10:47 → Y5N 12:39
PROVIDERS: ADMIT Allergy & Immunology; ATTEND Psychiatry & Neurology Pain Medicine
PROC: HZ42ZZZ Group Counseling for Substance Abuse Treatment, Cognitive-Behavioral (ICD-10-PCS; principal; 2023-02-06)
DX: F14.20 Cocaine dependence, uncomplicated (principal); F19.282 Other psychoactive substance dependence with psychoactive substance-induced sleep disorder; F31.9 Bipolar disorder, unspecified; Z21 Asymptomatic human immunodeficiency virus [HIV] infection status; J44.9 Chronic obstructive pulmonary disease, unspecified; K21.9 Gastro-esophageal reflux disease without esophagitis; Z87.891 Personal history of nicotine dependence; Z88.0 Allergy status to penicillin; Z88.8 Allergy status to other drugs, medicaments and biological substances
CPT/HCPCS: 36415; 80053; 81025; 85027; 86780; 86803; 87635

== ENCOUNTER 2023-07-14 09:00 | Inpatient (IN) | payer BC ==
[2023-07-14 10:46] VITALS: BMI 19.1
[2023-07-14] MEDS ORDERED: IBUPROFEN 400 MG TABLET (FP) PO PRN (14:06)
[2023-07-14] MEDS ORDERED: LOPERAMIDE HCL 2 MG CAPSULE PO PRN (14:06)
[2023-07-14] MEDS ORDERED: NALOXONE HCL 0.4 MG/ML VIAL IM PRN (14:06)
[2023-07-14] MEDS ORDERED: NICOTINE POLACRILEX 4 MG GUM BUC PRN (14:06)
[2023-07-14] MEDS ORDERED: MAGNESIUM HYDROX 2400MG/30ML ORAL SUSPENSION 30 ML CUP PO PRN (14:06)
[2023-07-14] MEDS ORDERED: hydrOXYzine PAMOATE 25 MG CAPSULE (FP) PO PRN (14:06)
[2023-07-14] MEDS ORDERED: guaiFENesin 600 MG TABLET.ER (FP) PO PRN (14:06)
[2023-07-14] MEDS ORDERED: chlordiazePOXIDE HCL 25 MG CAPSULE PO PRN (14:06)
[2023-07-14] MEDS ORDERED: METHOCARBAMOL 500 MG TABLET PO PRN (14:06)
[2023-07-14] MEDS ORDERED: BISMUTH SUBSALICYLATE 524 MG/30 ML PO PRN (14:06)
[2023-07-14] MEDS ORDERED: DICYCLOMINE HCL 10 MG CAPSULE PO PRN (14:06)
[2023-07-14] MEDS ORDERED: MAG HYDROX/AL HYDROX/SIMETH 30 ML UNIT-DOSE CUP PO PRN (14:06)
[2023-07-14] MEDS ORDERED: BENZOCAINE/MENTHOL (CHLORASEPTIC ) LOZENGE MM PRN (14:06)
[2023-07-14] MEDS ORDERED: ACETAMINOPHEN 325 MG TABLET (FP) PO PRN (14:06)
[2023-07-14] MEDS ORDERED: POLYETHYLENE GLYCOL (HEALTHYLAX) 3350 17 GM PACKET PO PRN (14:06)
[2023-07-14] MEDS ORDERED: IBUPROFEN 600 MG TABLET (FP) PO PRN (14:06)
[2023-07-14] MEDS ORDERED: BENZONATATE 200 MG CAPSULE PO PRN (14:06)
[2023-07-14] MEDS ORDERED: NALOXONE HCL (KLOXXADO) 8 MG SPRAY NS PRN (14:06)
[2023-07-14] MEDS ORDERED: ONDANSETRON *ODT* 4 MG TABLET SL PRN (14:06)
[2023-07-14] MEDS ORDERED: ALBUTEROL SO4 HFA INHALER IH PRN (14:08)
[2023-07-14] MEDS: BICTEGRAV/EMTRICIT/TENOFOV (BIKTARVY) 50-200-25 MG TABLET PO SCH (17:26)
[2023-07-14] MEDS: chlordiazePOXIDE HCL 25 MG CAPSULE PO SCH ×2 (17:27→22:34)
[2023-07-14] MEDS: MELATONIN 5 MG TABLETS PO SCH (22:34)
[2023-07-14] MEDS: THIAMINE HCL 100 MG TABLET (FP) PO SCH (22:34)
[2023-07-15] MEDS: chlordiazePOXIDE HCL 25 MG CAPSULE PO SCH ×4 (06:00→22:15)
[2023-07-15] MEDS: BICTEGRAV/EMTRICIT/TENOFOV (BIKTARVY) 50-200-25 MG TABLET PO SCH (07:59)
[2023-07-15] MEDS: PRENATAL VITAMINS W/ FOLIC ACID TABLET (FP) PO SCH (10:24)
[2023-07-15] MEDS: risperiDONE 1 MG TABLET PO SCH (10:24)
[2023-07-15 11:35] LABS: HEMATOCRIT 36.3 % (32.4-45.2); HEMOGLOBIN 11.9 GM/dL (10.7-15.3); MCHC 32.7 g/dl (32.0-36.0); MEAN CELL VOLUME 82.6 fl (80-96); MEAN PLT VOLUME 7.8 fl (7.5-11.1); PLATELET COUNT 350 10^3/uL (134-434); RDW 15.6 % (11.6-15.6); WHITE BLOOD COUNT 6.5 K/mm3 (4.0-10.0)
[2023-07-15 12:05] LABS: CHLORIDE 110 mmol/L (98-107); POTASSIUM 4.3 mmol/L (3.5-5.1); SODIUM 139 mmol/L (136-145)
[2023-07-15 12:14] LABS: CALCIUM 10.4 mg/dL (8.5-10.1)
[2023-07-15 12:15] LABS: ALBUMIN 3.1 g/dl (3.4-5.0); ANION GAP 4 mmol/L (4-13); CO2 25 mmol/L (21-32); GLUCOSE,RANDOM 97 mg/dL (74-106)
[2023-07-15 12:17] LABS: CREATININE 0.7 mg/dL (0.55-1.3); SGOT/AST 11 U/L (15-37); SGPT/ALT 16 U/L (13-61)
[2023-07-15 12:19] LABS: BILIRUBIN,TOTAL 0.2 mg/dL (0.2-1); TOT PROT 7.2 g/dl (6.4-8.2)
[2023-07-15 12:20] LABS: ALK PHOS 94 U/L (45-117)
[2023-07-15 12:23] LABS: BLOOD UREA NITROGEN 11.9 mg/dL (7-18)
[2023-07-15] MEDS ORDERED: QUEtiapine FUMARATE 200 MG TABLET PO SCH (22:00)
[2023-07-15] MEDS: risperiDONE 2 MG TABLET PO SCH (22:15)
[2023-07-15] MEDS: QUEtiapine FUMARATE 200 MG TABLET PO SCH (22:15)
[2023-07-15] MEDS: MELATONIN 5 MG TABLETS PO SCH (22:15)
[2023-07-15] MEDS: LACTULOSE 20 GM/30 ML UDC (FOR ORAL USE ONLY) PO SCH (22:15)
[2023-07-15] MEDS: THIAMINE HCL 100 MG TABLET (FP) PO SCH (22:15)
[2023-07-16] MEDS: LACTULOSE 20 GM/30 ML UDC (FOR ORAL USE ONLY) PO SCH ×3 (05:51→22:06)
[2023-07-16] MEDS: chlordiazePOXIDE HCL 25 MG CAPSULE PO SCH ×4 (05:51→22:06)
[2023-07-16] MEDS: BICTEGRAV/EMTRICIT/TENOFOV (BIKTARVY) 50-200-25 MG TABLET PO SCH (08:56)
[2023-07-16] MEDS: risperiDONE 1 MG TABLET PO SCH (10:17)
[2023-07-16] MEDS: PRENATAL VITAMINS W/ FOLIC ACID TABLET (FP) PO SCH (10:17)
[2023-07-16] MEDS: risperiDONE 2 MG TABLET PO SCH (22:06)
[2023-07-16] MEDS: QUEtiapine FUMARATE 200 MG TABLET PO SCH (22:06)
[2023-07-16] MEDS: THIAMINE HCL 100 MG TABLET (FP) PO SCH (22:06)
[2023-07-16] MEDS: MELATONIN 5 MG TABLETS PO SCH (22:06)
[2023-07-17] MEDS ORDERED: chlordiazePOXIDE HCL 10 MG CAPSULE PO PRN
[2023-07-17] MEDS: LACTULOSE 20 GM/30 ML UDC (FOR ORAL USE ONLY) PO SCH ×3 (05:25→22:07)
[2023-07-17] MEDS: chlordiazePOXIDE HCL 10 MG CAPSULE PO SCH ×5 (05:26→22:06)
[2023-07-17] MEDS: BICTEGRAV/EMTRICIT/TENOFOV (BIKTARVY) 50-200-25 MG TABLET PO SCH (07:08)
[2023-07-17] MEDS: risperiDONE 1 MG TABLET PO SCH (10:18)
[2023-07-17] MEDS: PRENATAL VITAMINS W/ FOLIC ACID TABLET (FP) PO SCH (10:18)
[2023-07-17] MEDS: THIAMINE HCL 100 MG TABLET (FP) PO SCH (22:05)
[2023-07-17] MEDS: MELATONIN 5 MG TABLETS PO SCH (22:05)
[2023-07-17] MEDS: QUEtiapine FUMARATE 200 MG TABLET PO SCH (22:05)
[2023-07-17] MEDS: risperiDONE 2 MG TABLET PO SCH (22:06)
[2023-07-18] MEDS: chlordiazePOXIDE HCL 10 MG CAPSULE PO SCH ×2 (05:34→16:57)
[2023-07-18] MEDS: LACTULOSE 20 GM/30 ML UDC (FOR ORAL USE ONLY) PO SCH ×2 (05:37→13:25)
[2023-07-18] MEDS: BICTEGRAV/EMTRICIT/TENOFOV (BIKTARVY) 50-200-25 MG TABLET PO SCH (07:01)
[2023-07-18] MEDS: PRENATAL VITAMINS W/ FOLIC ACID TABLET (FP) PO SCH (09:55)
[2023-07-18] MEDS: risperiDONE 1 MG TABLET PO SCH (09:55)
[2023-07-18 13:16] VITALS: PULSE 90; RESP 18
[2023-07-18 16:47] VITALS: BP 118/77; TEMP 98.2
[2023-07-19] MEDS ORDERED: chlordiazePOXIDE HCL 10 MG CAPSULE PO ONE (05:00)
== END 2023-07-18 16:56 | disposition home or self-care (01) | DRG 774 ==
LOC: YASAS 09:00 → Y3N 14:26
PROVIDERS: ADMIT Allergy & Immunology; ATTEND Surgery
PROC: HZ2ZZZZ Detoxification Services for Substance Abuse Treatment (ICD-10-PCS; principal; 2023-07-14)
DX: F10.230 Alcohol dependence with withdrawal, uncomplicated (principal); F14.20 Cocaine dependence, uncomplicated; F17.210 Nicotine dependence, cigarettes, uncomplicated; F31.9 Bipolar disorder, unspecified; F41.9 Anxiety disorder, unspecified; Z21 Asymptomatic human immunodeficiency virus [HIV] infection status; J45.20 Mild intermittent asthma, uncomplicated; K21.9 Gastro-esophageal reflux disease without esophagitis; R79.89 Other specified abnormal findings of blood chemistry; Z56.0 Unemployment, unspecified; Z59.00 Homelessness unspecified; Z88.0 Allergy status to penicillin
CPT/HCPCS: 36415; 80053; 80307; 81025; 82140; 85027; 86780; 87635; 87811; 93005; 93010